=== PATIENT | male | born 1960 | race Two or more races ===

== ENCOUNTER 2022-06-20 05:46 | Inpatient (IN) | payer OTHER ==
[~2022-06-20] VITALS: Ht 154.9 cm; Wt 81.0 kg
[2022-06-20] MEDS ORDERED: METHYLPREDNISOLONE SOD SUCC 125 MG/2 ML VIAL IV ONE (06:30)
[2022-06-20] MEDS ORDERED: DIPHENHYDRAMINE 50MG/ML VIAL IV ONE (06:30)
[2022-06-20] MEDS ORDERED: FAMOTIDINE 20MG/2ML VIAL IV ONE (06:30)
[2022-06-20 06:44] LABS: BASOPHILS % 0.6 % (0.0-2.0); EOSINOPHILS % 2.7 % (0.0-5.0); HEMATOCRIT. 50.1 % (42.0-52.0); HEMOGLOBIN. 17.1 g/dL (14.0-18.0); LYMPHOCYTES % 42.8 % (20.0-50.0); MEAN CORPUSCULAR HEMOGLOBIN 32.5 pg (28.0-32.0); MEAN CORPUSCULAR VOLUME 95.2 fL (80.0-94.0); MEAN PLATELET VOLUME 8.1 fl (7.4-10.4); MONOCYTES % 10.7 % (2.0-8.0); NEUTROPHILS % 43.2 % (40.0-76.0); PLATELET 119 x1000/uL (130-400); RED BLOOD CELL COUNT 5.26 mill/uL (4.7-6.1)
[2022-06-20 06:49] LABS: CHLORIDE 105 mEq/L (98-107)
[2022-06-20 07:05] LABS: CLARITY URINE CLEAR (CLEAR); COLOR URINE YELLOW (YELLOW); KETONES URINE NEGATIVE (NEGATIVE); LEUKOCYTE ESTERASE URINE NEGATIVE (NEGATIVE); NITRITE URINE NEGATIVE (NEGATIVE); OCCULT BLOOD URINE NEGATIVE (NEGATIVE); PROTEIN URINE NEGATIVE (NEGATIVE); SPECIFIC GRAVITY URINE 1.007 (1.005-1.030)
[2022-06-20] MEDS ORDERED: ACETAMINOPHEN 325MG TABLET PO PRN (12:45)
[2022-06-20] MEDS ORDERED: MAGNESIUM/ALUMINUM HYDROXIDE/SIMETHICONE 30ML UDC PO PRN (12:45)
[2022-06-20] MEDS ORDERED: ONDANSETRON HCL 4MG/2ML INJ IV PRN (12:45)
[2022-06-20] MEDS ORDERED: DOCUSATE SODIUM 100MG CAPSULE PO PRN (12:45)
[2022-06-20] MEDS ORDERED: TRAMADOL 50MG TABLET PO PRN (12:45)
[2022-06-20] MEDS ORDERED: GUAIFENESIN 200MG/10ML SUGAR FREE UDC PO PRN (12:45)
[2022-06-20] MEDS ORDERED: CLONIDINE 0.1MG TABLET PO PRN (12:45)
[2022-06-20 14:10] VITALS: BP 150/67
[2022-06-20 14:25] VITALS: BP 150/67
[2022-06-20] MEDS ORDERED: DEXTROSE 50% WATER 50ML SYRINGE IV PRN (14:30)
[2022-06-20] MEDS: DIPHENHYDRAMINE 50MG CAPSULE PO SCH ×2 (15:01→20:28)
[2022-06-20] MEDS: AMLODIPINE 10MG TABLET PO SCH (15:01)
[2022-06-20] MEDS: ASPIRIN 81MG EC TABLET PO SCH (15:01)
[2022-06-20] MEDS: ENOXAPARIN 40MG/0.4ML SYR SUBCUT SCH (15:02)
[2022-06-20] MEDS: POTASSIUM CHLORIDE 20MEQ TABLET SR PO SCH (15:02)
[2022-06-20 16:00] VITALS: BP 154/97
[2022-06-20] MEDS: BLOOD SUGAR DIAGNOSTIC STRIP TEST SCH ×2 (17:15→20:15)
[2022-06-20] MEDS: INSULIN LISPRO 100 UNITS/ML SUBCUT SCH ×2 (17:33→20:29)
[2022-06-20] MEDS ORDERED: ATEN50TA PO (19:27)
[2022-06-20] MEDS ORDERED: AMLO10TA80 PO (19:27)
[2022-06-20] MEDS ORDERED: ENAL10TA19 PO (19:27)
[2022-06-20] MEDS ORDERED: CLON0.1T PO (19:27)
[2022-06-20 20:00] VITALS: BP 155/96
[2022-06-21] VITALS: BP 117/80
[2022-06-21 04:00] VITALS: BP 122/88
[2022-06-21] MEDS: BLOOD SUGAR DIAGNOSTIC STRIP TEST SCH (06:10)
[2022-06-21] MEDS: INSULIN LISPRO 100 UNITS/ML SUBCUT SCH (06:10)
[2022-06-21 06:46] LABS: CHLORIDE 106 mEq/L (98-107)
[2022-06-21 06:54] LABS: HDL CHOLESTEROL 47 mg/dL (40-59); LDL CHOLESTEROL 91 mg/dL (5-100)
[2022-06-21 07:07] LABS: HEMATOCRIT. 45.9 % (42.0-52.0); HEMOGLOBIN. 15.5 g/dL (14.0-18.0); LYMPHOCYTES % 20.2 % (20.0-50.0); MEAN CORPUSCULAR HEMOGLOBIN 32.8 pg (28.0-32.0); MEAN CORPUSCULAR VOLUME 97.1 fL (80.0-94.0); MEAN PLATELET VOLUME 8.4 fl (7.4-10.4); MONOCYTES % 7.1 % (2.0-8.0); NEUTROPHILS % 72.7 % (40.0-76.0); PLATELET 115 x1000/uL (130-400); RED BLOOD CELL COUNT 4.72 mill/uL (4.7-6.1); RED CELL DISTRIBUTION WIDTH 14.1 % (11.6-14.6)
[2022-06-21 08:00] VITALS: BP 150/79
[2022-06-21] MEDS ORDERED: PREDNISONE 20MG TABLET PO SCH (09:00)
[2022-06-21] MEDS: AMLODIPINE 10MG TABLET PO SCH (09:57)
[2022-06-21] MEDS: ENOXAPARIN 40MG/0.4ML SYR SUBCUT SCH (09:57)
[2022-06-21] MEDS: DIPHENHYDRAMINE 50MG CAPSULE PO SCH (09:58)
[2022-06-21] MEDS: POTASSIUM CHLORIDE 20MEQ TABLET SR PO SCH (09:58)
[2022-06-21] MEDS: ASPIRIN 81MG EC TABLET PO SCH (09:58)
[2022-06-21 10:12] VITALS: BP 150/79
== END 2022-06-21 13:30 | disposition home or self-care (01) | DRG 916 ==
LOC: ER 05:46 → 8WST 11:29 → EDBEDREQTM 11:32 → EDBEDREQ 11:32 → EDBEDREQSVC 11:32 → ENRESERV 11:57
PROVIDERS: ADMIT Hospitalist; ATTEND Hospitalist
PROC: 30233K1 Transfusion of Nonautologous Frozen Plasma into Peripheral Vein, Percutaneous Approach (ICD-10-PCS; principal; 2022-06-20)
DX: T78.3XXA Angioneurotic edema, initial encounter (principal); I69.051 Hemiplegia and hemiparesis following nontraumatic subarachnoid hemorrhage affecting right dominant side; D69.6 Thrombocytopenia, unspecified; E11.9 Type 2 diabetes mellitus without complications; I10 Essential (primary) hypertension; E87.5 Hyperkalemia; T46.4X5A Adverse effect of angiotensin-converting-enzyme inhibitors, initial encounter; Z82.49 Family history of ischemic heart disease and other diseases of the circulatory system; Y92.89 Other specified places as the place of occurrence of the external cause
CPT/HCPCS: 36415; 71045; 80053; 80061; 81003; 82962; 83036; 83735; 84484; 85025; 86850; 86900; 86927; 93005; 93970; 99291; J1200; J1650; J1815; J2930; J3490; J7512; P9017; Q0163

== ENCOUNTER 2024-09-24 13:28 | Emergency (ER) | payer MEDICARE, MEDICAID ==
[~2024-09-24] VITALS: Ht 175.3 cm; Wt 91.0 kg
[~2024-09-24 13:28] MED LIST: AMLO10TA80 PO; ATEN50TA PO; CLON0.1T PO
[2024-09-24 14:02] VITALS: O2SAT 96
[2024-09-24 17:59] LABS: BASOPHILS % 0.6 % (0.0-2.0); EOSINOPHILS % 1.8 % (0.0-5.0); HEMATOCRIT. 49.1 % (42.0-52.0); HEMOGLOBIN. 16.8 g/dL (14.0-18.0); LYMPHOCYTES % 39.5 % (20.0-50.0); MEAN CORPUSCULAR HEMOGLOBIN 33.9 pg (28.0-32.0); MEAN CORPUSCULAR HGB CONC 34.2 g/dL (31.0-37.0); MEAN PLATELET VOLUME 7.6 fl (7.4-10.4); NEUTROPHILS % 47.1 % (40.0-76.0); PLATELET 147 x1000/uL (130-400); RED BLOOD CELL COUNT 4.96 mill/uL (4.7-6.1); RED CELL DISTRIBUTION WIDTH 13.4 % (11.6-14.6); WHITE BLOOD COUNT 4.7 x1000/uL (4.5-11.0)
[2024-09-24 18:02] LABS: CHLORIDE 103 mEq/L (98-107); POTASSIUM 3.6 mEq/L (3.5-5.1); SODIUM 138 mEq/L (136-145)
[2024-09-24 18:03] LABS: CARBON DIOXIDE 29 mEq/L (21-32)
[2024-09-24 18:04] LABS: CALCIUM 9.4 mg/dL (8.7-10.4)
[2024-09-24 18:08] LABS: CREATININE 0.8 mg/dL (0.6-1.3); GLUCOSE 97 mg/dL (70-105); UREA NITROGEN BLOOD 10 mg/dL (9-23)
[2024-09-24] MEDS ORDERED: AMOX1TAB16 MT (18:18)
[2024-09-24 19:24] VITALS: BP 145/82; PULSE 91; RESP 18; TEMP 36.89184; O2SAT 96
== END 2024-09-24 19:25 | disposition home or self-care (01) ==
LOC: ER 13:28
DX: L03.115 Cellulitis of right lower limb (principal); I10 Essential (primary) hypertension; E11.9 Type 2 diabetes mellitus without complications; Z86.73 Personal history of transient ischemic attack (TIA), and cerebral infarction without residual deficits
CPT/HCPCS: 36415; 80048; 85025; 93971; 99284

== ENCOUNTER 2024-09-27 10:42 | Emergency (ER) | payer SELFPAY ==
[~2024-09-27] VITALS: Ht 170.2 cm; Wt 93.4 kg
[~2024-09-27 10:42] MED LIST changes: +AMOX1TAB16 MT
[2024-09-27 10:52] VITALS: O2SAT 94
[2024-09-27 11:35] VITALS: BP 142/84; PULSE 91; RESP 16; TEMP 37.05852; O2SAT 94
== END 2024-09-27 14:10 | disposition home or self-care (01) ==
LOC: ER 10:56
DX: L03.115 Cellulitis of right lower limb (principal); I10 Essential (primary) hypertension; E11.9 Type 2 diabetes mellitus without complications; Z86.73 Personal history of transient ischemic attack (TIA), and cerebral infarction without residual deficits; Z79.899 Other long term (current) drug therapy
CPT/HCPCS: 99281